=== PATIENT | female | born 1965 | race Caucasian/White ===

== ENCOUNTER 2018-01-02 15:43 | Observation (INO) | payer OTHER ==
[2018-01-02 15:58] VITALS: RESP 18
[2018-01-02] MEDS ORDERED: NITROGLYCERIN OINT 1 INCH/GM PACKET TOPICAL STA (16:34)
[2018-01-02] MEDS ORDERED: ASPIRIN 81 MG PO STA (16:34)
--- NOTE | 2018-01-02 16:39 | ED ---
General Adult HPI - General Chief complaint: Chest Pain Stated complaint: Chest pain Time Seen by Provider: 01/02/18 16:20 Source: patient, RN notes reviewed Mode of arrival: wheelchair Limitations: no limitations - History of Present Illness Initial comments: Patient is a pleasant 52-year-old female presenting to the emergency Department with chest discomfort. Patient has had intermittent symptoms for close to week. Discomfort is mild at this time. Discomfort is currently 2/10. Worst symptoms have been is 4 -5/10. Patient has discomfort in her left chest with some radiation to the upper back. patient states she does get some discomfort of her upper back at times normally. Discomfort feels like an ache. No associated dyspnea or nausea. Patient does get sweaty at times however there may be associated with her menopause. No known history of cardiac disease. No leg pain or leg swelling. Discomfort is not necessarily exertional. 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 with questionable changes and is advised to come to the emergency department - Related Data Home Medications Medication Instructions Recorded Confirmed ALPRAZolam [Xanax] 0.25 mg PO DAILY PRN 01/02/18 01/02/18 Aspirin [Adult Low Dose Aspirin EC] 81 mg PO MOTUWETHFR 01/02/18 01/02/18 Cholecalciferol [Vitamin D3] 1,000 unit PO DAILY 01/02/18 01/02/18 Inulin/Chromium Picolinate [Fiber 1 tab PO DAILY 01/02/18 01/02/18 Gummies Chew] Levothyroxine Sodium [Synthroid] 75 mcg PO MOTUTHFR 01/02/18 01/02/18 Multivitamins, Thera [Multivitamin 1 tab PO DAILY 01/02/18 01/02/18 (formulary)] Vitamin B Complex 1 cap PO DAILY 01/02/18 01/02/18 Allergies Allergy/AdvReac Type Severity Reaction Status Date / Time nitrofurantoin Allergy Rash/Hives Verified 01/02/18 16:45 [From Macrobid] shellfish derived [Lobster] AdvReac Nausea Verified 01/02/18 16:45 Review of Systems ROS Statement: Those systems with pertinent positive or pertinent negative responses have been documented in the HPI. ROS Other: All systems not noted in ROS Statement are negative. Constitutional: Denies: fever Eyes: Denies: eye pain ENT: Denies: ear pain Respiratory: Denies: cough, dyspnea Cardiovascular: Reports: chest pain Endocrine: Denies: fatigue Gastrointestinal: Denies: abdominal pain Genitourinary: Denies: dysuria Musculoskeletal: Reports: back pain Skin: Denies: rash Neurological: Denies: weakness Past Medical History Past Medical History: Thyroid Disorder History of Any Multi-Drug Resistant Organisms: None Reported Past Surgical History: Bladder Surgery Additional Past Surgical History / Comment(s): cystoscopy, laparotomy, cervical lymph node removal, liposuction, lap band placement Past Psychological History: Anxiety Smoking Status: Former smoker Past Alcohol Use History: Occasional Past Drug Use History: None Reported General Exam Limitations: no limitations General appearance: alert, in no apparent distress Head exam: Present: atraumatic Eye exam: Present: normal appearance Neck exam: Present: normal inspection Respiratory exam: Present: normal lung sounds bilaterally. Absent: chest wall tenderness Cardiovascular Exam: Present: regular rate, normal rhythm Expanded Peripheral pulses: 2+: Radial (R), Radial (L), Posterior Tibialis (R), Posterior Tibialis (L), Dorsalis Pedis (R), Dorsalis Pedis (L) GI/Abdominal exam: Present: soft. Absent: tenderness Extremities exam: Present: normal inspection. Absent: pedal edema, calf tenderness Back exam: Present: normal inspection. Absent: tenderness Neurological exam: Present: alert Psychiatric exam: Present: normal affect, normal mood Skin exam: Present: normal color Course Vital Signs 01/02/18 15:52 Temperature 99.1 F Pulse Rate 99 Respiratory 18 Rate Blood Pressure 143/83 O2 Sat by Pulse 100 Oximetry EKG Findings - EKG Comments: EKG Findings:: Normal sinus rhythm 90. UT 136. QRS 78. QT 380. QTC 464. Normal axis. Normal QRS. Borderline ST elevation in aVR which may be repolarization. There is also borderline ST depression leads V3 through V6. Medical Decision Making - Medical Decision Making Patient reevaluated and resting comfortably in bed. Patient and family both updated on results and plan. Case was discussed in detail with Dr. Lee, covering for Dr. Bourne, who will admit. Patient will be started on heparin at this time secondary to concern regarding mild change. EKG. Cardiology will be placed on consult. - Lab Data Result diagrams: 01/02/18 16:50 01/02/18 16:50 Lab Results 01/02/18 01/02/18 01/02/18 Range/Units 16:50 16:50 16:50 WBC 6.3 (3.8-10.6) k/uL RBC 4.31 (3.80-5.40) m/uL Hgb 13.4 (11.4-16.0) gm/dL Hct 40.0 (34.0-46.0) % MCV 92.6 (80.0-100.0) fL MCH 31.0 (25.0-35.0) pg MCHC 33.5 (31.0-37.0) g/dL RDW 12.3 (11.5-15.5) % Plt Count 265 (150-450) k/uL Neutrophils % 72 % Lymphocytes % 20 % Monocytes % 5 % Eosinophils % 1 % Basophils % 0 % Neutrophils # 4.6 (1.3-7.7) k/uL Lymphocytes # 1.3 (1.0-4.8) k/uL Monocytes # 0.3 (0-1.0) k/uL Eosinophils # 0.0 (0-0.7) k/uL Basophils # 0.0 (0-0.2) k/uL PT (9.0-12.0) sec INR (<1.2) APTT (22.0-30.0) sec D-Dimer (<0.60) mg/L FEU Sodium 140 (137-145) mmol/L Potassium 4.0 (3.5-5.1) mmol/L Chloride 103 (98-107) mmol/L Carbon Dioxide 27 (22-30) mmol/L Anion Gap 10 mmol/L BUN 22 H (7-17) mg/dL Creatinine 0.69 (0.52-1.04) mg/dL Est GFR (CKD-EPI)AfAm >90 (>60 ml/min/1.73 sqM) Est GFR (CKD-EPI)NonAf >90 (>60 ml/min/1.73 sqM) Glucose 97 (74-99) mg/dL Calcium 9.7 (8.4-10.2) mg/dL Magnesium 1.7 (1.6-2.3) mg/dL Total Bilirubin 0.5 (0.2-1.3) mg/dL AST 28 (14-36) U/L ALT 38 (9-52) U/L Alkaline Phosphatase 69 (38-126) U/L Total Creatine Kinase 80 (30-135) U/L CK-MB (CK-2) 1.4 (0.0-2.4) ng/mL CK-MB (CK-2) Rel Index 1.8 Troponin I <0.012 (0.000-0.034) ng/mL Total Protein 7.5 (6.3-8.2) g/dL Albumin 4.5 (3.5-5.0) g/dL 01/02/18 Range/Units 16:50 WBC (3.8-10.6) k/uL RBC (3.80-5.40) m/uL Hgb (11.4-16.0) gm/dL Hct (34.0-46.0) % MCV (80.0-100.0) fL MCH (25.0-35.0) pg MCHC (31.0-37.0) g/dL RDW (11.5-15.5) % Plt Count (150-450) k/uL Neutrophils % % Lymphocytes % % Monocytes % % Eosinophils % % Basophils % % Neutrophils # (1.3-7.7) k/uL Lymphocytes # (1.0-4.8) k/uL Monocytes # (0-1.0) k/uL Eosinophils # (0-0.7) k/uL Basophils # (0-0.2) k/uL PT 10.0 (9.0-12.0) sec INR 1.0 (<1.2) APTT 21.4 L (22.0-30.0) sec D-Dimer 0.73 H (<0.60) mg/L FEU Sodium (137-145) mmol/L Potassium (3.5-5.1) mmol/L Chloride (98-107) mmol/L Carbon Dioxide (22-30) mmol/L Anion Gap mmol/L BUN (7-17) mg/dL Creatinine (0.52-1.04) mg/dL Est GFR (CKD-EPI)AfAm (>60 ml/min/1.73 sqM) Est GFR (CKD-EPI)NonAf (>60 ml/min/1.73 sqM) Glucose (74-99) mg/dL Calcium (8.4-10.2) mg/dL Magnesium (1.6-2.3) mg/dL Total Bilirubin (0.2-1.3) mg/dL AST (14-36) U/L ALT (9-52) U/L Alkaline Phosphatase (38-126) U/L Total Creatine Kinase (30-135) U/L CK-MB (CK-2) (0.0-2.4) ng/mL CK-MB (CK-2) Rel Index Troponin I (0.000-0.034) ng/mL Total Protein (6.3-8.2) g/dL Albumin (3.5-5.0) g/dL - Radiology Data Radiology results: report reviewed (CT angios of the chest shows no evidence of pulmonary embolism.), image reviewed (Chest x-ray shows no acute process) Disposition Clinical Impression: Unstable angina pectoris Disposition: ADMITTED IP TO THIS HOSP Is patient prescribed a controlled substance at d/c from ED?: No Referrals: Lobo Bourne MD [Primary Care Provider] - 1-2 days Decision Time: 19:26
[2018-01-02 17:02] LABS: Basophils % (A) 0 %; Eosinophils % (A) 1 %; HGB 13.4 gm/dL (11.4-16.0); Lymphocytes # (A) 1.3 k/uL (1.0-4.8); Lymphocytes % (A) 20 %; MCHC 33.5 g/dL (31.0-37.0); MCV 92.6 fL (80.0-100.0); Mean Platelet Volume 7.2; Monocytes # (A) 0.3 k/uL (0-1.0); Monocytes % (A) 5 %; Neutrophils # (A) 4.6 k/uL (1.3-7.7); Neutrophils % (A) 72 %; Platelet Count 265 k/uL (150-450); RBC 4.31 m/uL (3.80-5.40); RDW 12.3 % (11.5-15.5); WBC 6.3 k/uL (3.8-10.6)
--- NOTE | 2018-01-02 17:09 | XR ---
EXAMINATION TYPE: XR chest 2V DATE OF EXAM: 01/02/2018 COMPARISON: NONE HISTORY: Chest pain TECHNIQUE: Frontal and lateral views of the chest are obtained. FINDINGS: Heart and mediastinum are normal. Lungs are clear. Diaphragm is normal. Bony thorax appear s normal. IMPRESSION: Normal chest
[2018-01-02 17:13] LABS: ALT 38 U/L (9-52); AST 28 U/L (14-36); Albumin 4.5 g/dL (3.5-5.0); Alkaline Phosphatase 69 U/L (38-126); Anion Gap 10 mmol/L; Blood Urea Nitrogen 22 mg/dL (7-17); Calcium 9.7 mg/dL (8.4-10.2); Carbon Dioxide 27 mmol/L (22-30); Chloride 103 mmol/L (98-107); Glucose 97 mg/dL (74-99); Magnesium 1.7 mg/dL (1.6-2.3); Sodium 140 mmol/L (137-145); Total Bilirubin 0.5 mg/dL (0.2-1.3); Total Protein 7.5 g/dL (6.3-8.2)
[2018-01-02 17:16] LABS: Creatine Kinase 80 U/L (30-135)
[2018-01-02 17:24] LABS: D-Dimer 0.73 mg/L FEU (<0.60); Partial Thromboplastin Time 21.4 sec (22.0-30.0)
[2018-01-02 17:29] LABS: Creatine Kinase MB 1.4 ng/mL (0.0-2.4); Troponin I <0.012 ng/mL (0.000-0.034)
[2018-01-02] MEDS ORDERED: methylPREDNISolone SOD SUCCI 125 MG/2 ML VIAL IV STA (17:36)
[2018-01-02] MEDS ORDERED: diphenhydrAMINE 50 MG/ML 1 ML VIAL IVP STA (17:36)
[2018-01-02] MEDS ORDERED: FAMOTIDINE 20 MG/2 ML VIAL IV STA (17:36)
--- NOTE | 2018-01-02 19:11 | CT ---
EXAMINATION TYPE: CT angio chest DATE OF EXAM: 01/02/2018 6:55 PM COMPARISON: None HISTORY: Chest and back pain x1 week. CT DLP: 481 mGycm Automated exposure control for dose reduction was used. CONTRAST: CTA scan of the thorax is performed with IV Contrast, patient injected with 65ml mL of Isovue 370, pu lmonary embolism protocol. There are 3-D post processed images.. FINDINGS: SNA aorta measures 3.6 cm. There is no evidence of aortic aneurysm or dissection. There is no mediast inal adenopathy. There are no hilar masses. There is normal contrast opacification of the pulmonary a rteries. There are no filling defects. Heart size is normal. There is no pericardial effusion. There is bariatric surgery noted. The lungs are clear of infiltrate. There is no evidence of a pulmonary mass. There is no pleural effu parish. IMPRESSION: NO EVIDENCE OF PULMONARY EMBOLISM. NORMAL EXAM. SMALL HIATAL HERNIA NOTED.
[2018-01-02] MEDS ORDERED: HEPARIN SODIUM,PORCINE 5,000 UNIT/ML 1 ML VIAL IV PRN (19:26)
[2018-01-02] MEDS ORDERED: NITROGLYCERIN SL TABS 0.4 MG TAB SUBLINGUAL PRN (19:26)
[2018-01-02] MEDS ORDERED: HEPARIN SODIUM,PORCINE 5,000 UNIT/ML 1 ML VIAL IV ONE (19:26)
[2018-01-02] MEDS ORDERED: HEPARIN SOD,PORK IN 0.45% NACL 25,000 UNIT in 0.45% NACL 1 500ML.BAG IV SCH (19:30)
[2018-01-02] MEDS ORDERED: ALPRAZolam 0.25 MG TAB PO STA (19:31)
[2018-01-02] MEDS ORDERED: TAMSULOSIN 0.4 MG CAP.ER.24H PO SCH (21:30)
[2018-01-02 23:33] LABS: Creatine Kinase 76 U/L (30-135)
[2018-01-03 00:43] LABS: Creatine Kinase MB 1.1 ng/mL (0.0-2.4); Troponin I <0.012 ng/mL (0.000-0.034)
[2018-01-03] MEDS: NITROGLYCERIN OINT 1 INCH/GM PACKET TOPICAL SCH ×2 (01:02→06:15)
[2018-01-03 06:11] LABS: Platelet Count 249 k/uL (150-450)
[2018-01-03] MEDS ORDERED: LEVOTHYROXINE 75 MCG TAB PO SCH (06:30)
[2018-01-03 06:47] LABS: Creatine Kinase 62 U/L (30-135)
[2018-01-03 06:52] LABS: Cholesterol 224 mg/dL (<200); HDL Cholesterol 104 mg/dL (40-60); LDL Cholesterol,Calculated 110 mg/dL (0-99); Triglycerides 52 mg/dL (<150)
[2018-01-03 06:59] LABS: Creatine Kinase MB 0.9 ng/mL (0.0-2.4); Troponin I <0.012 ng/mL (0.000-0.034)
[2018-01-03 08:31] VITALS: PULSE 93
[2018-01-03] MEDS ORDERED: ASPIRIN 325 MG TAB PO SCH (09:00)
[2018-01-03 13:40] VITALS: BP 104/68; TEMP 98.2
--- NOTE | 2018-01-03 13:57 | ECHOF ---
Referral Reason:chest pain MEASUREMENTS -------- HEIGHT: 162.6 cm WEIGHT: 81.2 kg BP: 121/59 RVIDd: 3.0 cm (< 3.3) IVSd: 0.9 cm (0.6 - 1.1) LVIDd: 4.2 cm (3.9 - 5.3) LVPWd: 1.0 cm (0.6 - 1.1) IVSs: 1.4 cm LVIDs: 2.2 cm LVPWs: 1.3 cm LAESV Index (A-L): 15.28 ml/m Ao Diam: 2.9 cm (2.0 - 3.7) AV Cusp: 1.7 cm (1.5 - 2.6) LA Diam: 3.1 cm (2.7 - 3.8) EPSS: 0.2 cm MV E Ryan: 0.90 m/s MV DecT: 225 ms MV A Ryan: 0.80 m/s MV E/A Ratio: 1.13 RAP: 5.00 mmHg RVSP: 15.76 mmHg MV EF SLOPE: 35.98 mm/s (70 - 150) MV EXCURSION: 1.31 cm (> 18.000) FINDINGS -------- Sinus rhythm. This was a technically good study. The left ventricular size is normal. Left ventricular wall thickness is normal. Overall left vent ricular systolic function is normal with, an EF between 55 - 60 %. The right ventricle is normal in size and function. Normal LA size by volume 22+/-6 ml/m2. The right atrium is normal in size. The aortic valve is trileaflet, and appears structurally normal. No aortic stenosis or regurgitation. The mitral valve leaflets are mildly thickened. There is trace to mild mitral regurgitation. Trace tricuspid regurgitation present. Right ventricular systolic pressure is normal at < 35 mmHg. There is no evidence of pulmonary hypertension. Trace/mild (physiologic) pulmonic regurgitation. The aortic root size is normal. Normal inferior vena cava with normal inspiratory collapse consistent with estimated right atrial pre ssure of 5 mmHg. There is no pericardial effusion. CONCLUSIONS -------- 1. Sinus rhythm. 2. This was a technically good study. 3. The left ventricular size is normal. 4. Left ventricular wall thickness is normal. 5. Overall left ventricular systolic function is normal with, an EF between 55 - 60 %. 6. Normal LA size by volume 22+/-6 ml/m2. 7. The aortic valve is trileaflet, and appears structurally normal. No aortic stenosis or regurgitati on. 8. The mitral valve leaflets are mildly thickened. 9. There is trace to mild mitral regurgitation. 10. Trace tricuspid regurgitation present. 11. Right ventricular systolic pressure is normal at < 35 mmHg. 12. There is no evidence of pulmonary hypertension. 13. Trace/mild (physiologic) pulmonic regurgitation. 14. The aortic root size is normal. 15. There is no pericardial effusion. STUDENT RECORDS COORDINATOR: Sunil Tobias RDCS
--- NOTE | 2018-01-03 14:12 | ECHOS ---
STRESS ECHOCARDIOGRAM INDICATIONS: Chest pain. MEDICATIONS: Synthroid, aspirin. BASELINE HEART RATE: 88 BASELINE BLOOD PRESSURE: 129/60 MAXIMUM HEART RATE: 159 MAXIMUM BLOOD PRESSURE: 174/41 85% MPHR: 141 100% MPHR: 166 METS: 7.1 MAXIMUM STAGE REACHED: 2 TOTAL EXERCISE TIME: 6:00 CLINICAL INFORMATION: Patient was exercised for a total period of 6 minutes, peak heart rate of 159 was achieved. Maximum blood pressure 174/41 mmHg was noted. Resting EKG shows normal sinus rhythm with normal FL interval and QRS duration and normal ST-T waves. No ST-segment depression suggestive of ischemia is noted. The baseline echocardiographic images reveals normal left ventricular chamber size with normal left ventricular systolic function in the immediate postexercise. Normal increase in the wall thickness and contractility was noted. JUDITHL / IJN: [id number] /
--- NOTE | 2018-01-03 15:24 | CONS ---
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 She was at work yesterday when she developed an episode of discomfort in the chest. It was a midsternal discomfort that seemed to kind of settle there and also had some radiation to the neck. It happened while she was not doing physical activity. At other times when she does physical activity, she does not really have that many symptoms. She is resting comfortably at the time of my evaluation. PAST MEDICAL HISTORY: Remarkable for hypothyroidism. She has no evidence of any hypertension, myocardial infarction or CVA. MEDICATIONS: At home include Synthroid 75 mcg daily. She also takes Flomax 0.4 mg daily with some bladder issues. ALLERGIES: She is allergic to MACROBID. Her EKG revealed sinus mechanism with nonspecific ST depression. PHYSICAL EXAMINATION: Blood pressure is 130/70, pulse rate is 80 per minute, regular. HEENT: Unremarkable. Fundus was not examined by me. Neck is supple. No JVD. I do not hear a carotid bruit. There is no thyromegaly. Heart exam reveals S1, S2 heard normally without a rub, murmur or gallop. Lungs are clear. Abdomen is soft, nontender. Lower extremities reveal normal pulses. No edema. Central nervous system is normal. EKG revealed sinus mechanism with nonspecific ST depression. LAB DATA: Revealed unremarkable troponins. IMPRESSION: 1. Chest pain syndrome, cannot exclude angina. EKG is slightly abnormal. Patient had a CT angiography which did not reveal any evidence of pulmonary embolism. 2. Hypothyroidism. RECOMMENDATION: I am recommending that we increase activity, perform a stress echo and if this is normal she can be discharged. I discussed my thoughts in detail with the patient and . Thank you very much for the consult. MMODL / IJN: [id number] /
[2018-01-03] MEDS ORDERED: ATORVASTATIN 20 MG TAB PO SCH (21:00)
--- NOTE | 2018-01-03 21:39 | P.HPIM ---
History of Present Illness H&P Date: 01/03/18 Chief Complaint: Chest pain Patient is a 52-year-old female with a known history of hypothyroidism, history of lap band placement and previous history of smoking came to ER with complaints of chest discomfort and back pain mainly thoracic area for the past 1 week. 2 out of 10 in severity. Feels like aching and Pressure-like sensation. Patient has been having this pain for the past 1 week. Denied any associated nausea vomiting. No associated shortness of breath. No headache or dizziness or lightheadedness. Denied any complaints of abdominal pain nausea or vomiting. No recent illnesses. No recent travel. Patient had EKG done in the doctor's office which has been compared to her old EKG. It showed some ST- T wave changes and patient was referred to ER for further evaluation. EKG showed nonspecific ST-T wave changes and sinus rhythm D-dimer is 0.7. CT angiogram showed no evidence of pulmonary embolism. Small hiatal hernia noted. Chest x-ray showed no acute cardio prudent process 2-D echocardiogram was done. Review of Systems Constitutional: Patient denies any fever or chills . No generalized weakness or weight loss. Abdomen: Patient denied nausea vomiting and diarrhea and abdominal pain. Cardiovascular: Chest pain and back pain. No neck swelling. No palpitations.. Respiratory: patient denied any cough is from production. No shortness of breath Neurologic: Patient denied any numbness or tingling headache. Musculoskeletal: Patient denies any complaints of joint swelling or deformity. Skin: Negative Psychiatric: Negative Endocrine: No heat or cold intolerance. No recent weight gain. Genitourinary: No dysuria or hematuria. All other 14 point ROS negative except the above Past Medical History Past Medical History: Thyroid Disorder Additional Past Medical History / Comment(s): THYROID(GOITER) ,KIDNEY STONE 2016 (PASSES IT), STARTED OF CATARACT RT EYE History of Any Multi-Drug Resistant Organisms: None Reported Past Surgical History: Bladder Surgery Additional Past Surgical History / Comment(s): cystoscopy, laparotomy, cervical lymph node removal, liposuction, lap band placement Past Anesthesia/Blood Transfusion Reactions: No Reported Reaction Additional Past Anesthesia/Blood Transfusion Reaction / Comment(s): clausterphobia Smoking Status: Former smoker - Past Family History Mother Family Medical History: Cancer Additional Family Medical History / Comment(s): uterine cancer and 7 years later brain cancer Father Family Medical History: Dialysis, Myocardial Infarction ([place]), Renal Disease Additional Family Medical History / Comment(s): heart disease, has first mi at age 55 Medications and Allergies Home Medications Medication Instructions Recorded Confirmed Type ALPRAZolam [Xanax] 0.25 mg PO DAILY PRN 01/02/18 01/02/18 History Aspirin [Adult Low Dose Aspirin EC] 81 mg PO MOTUWETHFR 01/02/18 01/02/18 History Cholecalciferol [Vitamin D3] 1,000 unit PO DAILY 01/02/18 01/02/18 History Inulin/Chromium Picolinate [Fiber 1 tab PO DAILY 01/02/18 01/02/18 History Gummies Chew] Levothyroxine Sodium [Synthroid] 75 mcg PO MOTUTHFR 01/02/18 01/02/18 History Multivitamins, Thera [Multivitamin 1 tab PO DAILY 01/02/18 01/02/18 History (formulary)] Tamsulosin HCl [Flomax] 0.4 mg PO HS 01/02/18 01/02/18 History Vitamin B Complex 1 cap PO DAILY 01/02/18 01/02/18 History Atorvastatin [Lipitor] 20 mg PO HS #30 tab 01/03/18 Rx Allergies Allergy/AdvReac Type Severity Reaction Status Date / Time nitrofurantoin Allergy Rash/Hives Verified 01/02/18 16:45 [From Macrobid] shellfish derived [Lobster] AdvReac Nausea Verified 01/02/18 16:45 Physical Exam Vitals: Vital Signs Temp Pulse Pulse Resp BP BP Pulse Ox 01/03/18 08:26 97.7 F 93 16 131/63 100 01/03/18 03:34 96.3 F L 84 16 121/59 95 01/02/18 23:28 97.1 F L 83 16 120/59 94 L 01/02/18 21:00 97.5 F L 84 18 123/64 96 01/02/18 20:31 98.0 F 01/02/18 19:31 90 18 127/59 96 01/02/18 19:26 96 01/02/18 15:52 99.1 F 99 18 143/83 100 Intake and Output 01/02/18 01/03/18 01/03/18 22:59 06:59 14:59 Intake Total 333.032 Balance 333.032 Intake: IV 200 .9 200 Intake, IV Titration 133.032 Amount Heparin Sod,Pork in 0.45% 133.032 NaCl 25,000 unit In 0.45 % NaCl 1 500ml.bag @ 12 UNITS/KG/HR 19.05 mls/hr IV .Q24H NOE Rx#: [id number] Other: Voiding Method Toilet Toilet Weight 79.379 kg 81.6 kg PHYSICAL EXAMINATION: Patient is lying in the bed comfortably, no acute distress, awake alert and oriented.. HEENT: Normocephalic. Neck is supple. Pupils reactive. Nostrils clear. Oral cavity is moist. Ears reveal no drainage. Neck reveals no JVD, carotid bruits, or thyromegaly. CHEST EXAMINATION: Trachea is central. Symmetrical expansion. Lung oseguera clear to auscultation and percussion. CARDIAC: Normal S1, S2 with no gallops. No murmurs ABDOMEN: Soft. Bowel sounds normal. No organomegaly. No abdominal bruits. Extremities: reveal no edema. No clubbing or cyanosis Neurologically awake, alert, oriented x3 with well-coordinated movements. No focal deficits noted Skin: No rash or skin lesions. Psychiatric: Coperative. Nonsuicidal Musculoskeletal: No joint swelling or deformity. Normal range of motion. Results CBC & Chem 7: 01/03/18 05:26 01/02/18 16:50 Labs: Abnormal Lab Results - Last 24 Hours (Table) 01/02/18 01/02/18 01/03/18 Range/Units 16:50 16:50 01:47 APTT 21.4 L 44.4 H (22.0-30.0) sec D-Dimer 0.73 H (<0.60) mg/L FEU BUN 22 H (7-17) mg/dL Cholesterol (<200) mg/dL LDL Cholesterol, Calc (0-99) mg/dL HDL Cholesterol (40-60) mg/dL 01/03/18 01/03/18 Range/Units 05:26 09:15 APTT 53.4 H (22.0-30.0) sec D-Dimer (<0.60) mg/L FEU BUN (7-17) mg/dL Cholesterol 224 H (<200) mg/dL LDL Cholesterol, Calc 110 H (0-99) mg/dL HDL Cholesterol 104 H (40-60) mg/dL Thrombosis Risk Factor Assmnt - DVT/VTE Prophylaxis DVT/VTE Prophylaxis: Pharmacologic Prophylaxis ordered - Choose All That Apply Any of the Below Risk Factors Present?: Yes Each Factor Represents 1 point: Age 41-60 years Other Risk Factors: No Other congenital or acquired thrombophilia - If yes, enter type in comment: No Thrombosis Risk Factor Assessment Total Risk Factor Score: 1 Thrombosis Risk Factor Assessment Level: Low Risk Assessment and Plan Assessment: Atypical chest pain and back pain. Possible angina like symptoms. Thoracic upper back pain could be related to stressful work Hypothyroidism History of lap band surgery Previous history of smoking Hyperlipidemia with LDL 110 Plan: Patient will be continued on telemetry monitoring. Serial EKG and troponin [address] angiogram showed no evidence of pulmonary embolism. Patient was seen by cardiology and recommended 2-D echocardiogram and stress echo which has been done today. Negative study. Otherwise chest pain is much improved now. Patient is stable to be discharged home. Patient was started on statins for hyperlipidemia. Time with Patient: Greater than 30
--- NOTE | 2018-01-03 21:40 | P.DS ---
Providers Date of admission: 01/02/18 19:26 Expected date of discharge: 01/03/18 Attending physician: Chepe Lee Consults: 01/02/18 19:26 Consult Physician Urgent Consulting Provider: Ana Rosa Carrera Consult Reason/Comments: ua Do you want consulting provider notified?: Yes Primary care physician: Lobo Bourne Hospital Course: Discharge diagnosis Atypical chest pain and back pain. Possible angina like symptoms.. Ruled out ACS. Stress echo is negative. Thoracic upper back pain could be related to stressful work Hypothyroidism History of lap band surgery Previous history of smoking Hyperlipidemia with LDL 110 Hospital course Patient was continued on telemetry monitoring. Serial EKG and troponin [address] angiogram showed no evidence of pulmonary embolism. Patient was seen by cardiology and recommended 2-D echocardiogram and stress echo which has been done today. Negative study. Otherwise chest pain is much improved now. Patient is stable to be discharged home. Patient was started on statins for hyperlipidemia. Discharge physical examination was done and vitals reviewed. Patient Condition at Discharge: Stable Plan - Discharge Summary Discharge Rx Participant: Yes New Discharge Prescriptions: New Atorvastatin [Lipitor] 20 mg PO HS #30 tab Continue Cholecalciferol [Vitamin D3] 1,000 unit PO DAILY Multivitamins, Thera [Multivitamin (formulary)] 1 tab PO DAILY Levothyroxine Sodium [Synthroid] 75 mcg PO MOTUTHFR ALPRAZolam [Xanax] 0.25 mg PO DAILY PRN PRN Reason: Anxiety Vitamin B Complex 1 cap PO DAILY Inulin/Chromium Picolinate [Fiber Gummies Chew] 1 tab PO DAILY Aspirin [Adult Low Dose Aspirin EC] 81 mg PO MOTUWETHFR Tamsulosin HCl [Flomax] 0.4 mg PO HS Discharge Medication List ALPRAZolam [Xanax] 0.25 mg PO DAILY PRN 01/02/18 [History] Aspirin [Adult Low Dose Aspirin EC] 81 mg PO MOTUWETHFR 01/02/18 [History] Cholecalciferol [Vitamin D3] 1,000 unit PO DAILY 01/02/18 [History] Inulin/Chromium Picolinate [Fiber Gummies Chew] 1 tab PO DAILY 01/02/18 [History ] Levothyroxine Sodium [Synthroid] 75 mcg PO MOTUTHFR 01/02/18 [History] Multivitamins, Thera [Multivitamin (formulary)] 1 tab PO DAILY 01/02/18 [History ] Tamsulosin HCl [Flomax] 0.4 mg PO HS 01/02/18 [History] Vitamin B Complex 1 cap PO DAILY 01/02/18 [History] Atorvastatin [Lipitor] 20 mg PO HS #30 tab 01/03/18 [Rx] Follow up Appointment(s)/Referral(s): Lobo Bourne MD [Primary Care Provider] - 01/04/18 2:00 pm Patient Instructions/Handouts: Angina (DC) Discharge Disposition: HOME SELF-CARE
== END 2018-01-03 16:42 | disposition home or self-care (01) ==
LOC: EC 15:43 → 6SEL 19:26
PROVIDERS: ADMIT Internal Medicine; ATTEND Internal Medicine
DX: R07.89 Other chest pain (principal); M54.6 Pain in thoracic spine; E03.9 Hypothyroidism, unspecified; K44.9 Diaphragmatic hernia without obstruction or gangrene; E78.5 Hyperlipidemia, unspecified; F41.9 Anxiety disorder, unspecified; H26.9 Unspecified cataract; E04.9 Nontoxic goiter, unspecified; Z98.84 Bariatric surgery status; Z79.82 Long term (current) use of aspirin; Z79.890 Hormone replacement therapy; Z79.899 Other long term (current) drug therapy; Z88.1 Allergy status to other antibiotic agents; Z91.013 Allergy to seafood; Z87.891 Personal history of nicotine dependence; Z87.442 Personal history of urinary calculi; Z80.8 Family history of malignant neoplasm of other organs or systems; Z80.49 Family history of malignant neoplasm of other genital organs; Z82.49 Family history of ischemic heart disease and other diseases of the circulatory system; Z84.1 Family history of disorders of kidney and ureter
CPT/HCPCS: 99285 ×2; 96365 ×2; 96375 ×4; 96376 ×2; 96366 ×2; 36415; 93005; 93306; 93351; 85379; 80061; 80053; 82550 ×2; 82553 ×2; 83735; 84484 ×2; 85025; 85049; 85610; 85730 ×2; 71046; 71275; G0378 ×2; J1200; J1644 ×2; J2930; Q9967

== ENCOUNTER 2019-03-22 13:37 | Emergency (ER) | payer OTHER ==
[2019-03-22] MEDS ORDERED: SODIUM CHLORIDE 0.9% 1,000 ML IV STA (13:54)
[2019-03-22] MEDS ORDERED: MORPHINE SULFATE 4 MG/ML SYRINGE IV STA (13:54)
--- NOTE | 2019-03-22 14:06 | ED ---
General Adult HPI - General Chief complaint: Extremity Injury, Upper Stated complaint: Fall, arm injury Time Seen by Provider: 03/22/19 13:44 Source: patient Mode of arrival: wheelchair Limitations: no limitations - History of Present Illness Initial comments: Dictation was produced using [employer] dictation software. please excuse any gr ammatical, word or spelling errors. Chief Complaint: 53-year-old female presents with left shoulder pain. History of Present Illness: 53-year-old female she was walking her dog when she fell down a couple steps. Patient states she fell on a outstretched arm. She states she felt a snap. Since the injury patient's been complaining of left shoulder and left upper extremity pain. She localizes the pain to the anterior and lateral proximal humerus. Denies any numbness and paresthesias to the arm. Patient denies any history of injuries to the left upper extremity. The ROS documented in this emergency department record has been reviewed and confirmed by me. Those systems with pertinent positive or negative responses have been documented in the HPI. All other systems are other negative and/or noncontributory. PHYSICAL EXAM: General Impression: Alert and oriented x3, acute distress secondary to pain HEENT: Normocephalic atraumatic, extra-ocular movements intact, pupils equal and reactive to light bilaterally, mucous membranes moist. Cardiovascular: Heart regular rate and rhythm, S1&S2 audible, no murmurs, rubs or gallops Chest: Lungs clear to auscultation bilaterally, no rhonchi, no wheeze, no rales Abdomen: Bowel sounds present, abdomen soft, non-tender, non-distended, no organomegaly Musculoskeletal: Pulses present and equal in all extremities, no peripheral e alexis, tenderness to palpation of the left upper extremity at the proximal area. No obvious gross deformity at the left shoulder level Motor: no focal deficits noted Neurological: CN II-XII grossly intact, no focal motor or sensory deficits noted Skin: Intact with no visualized rashes Psych: Normal affect and mood ED course: 53-year-old female presents with left shoulder pain after fall. Signs upon arrival are within acceptable limits. Shoulder x-ray was performed showing comminuted proximal humerus fracture with minimal displacement. There is impaction of approximately 4 mm. Patient is p laced in a coapt splint given IV analgesia twice. She is also placed in a sling. Discussed patient case with Dr. Henderson who reports that optimal time to follow up with orthopedic surgery sometime next week. Prescription provided by mouth analgesia. Patient will be discharge she is understandable agreeable with disposition. Return was discussed. - Related Data Home Medications Medication Instructions Recorded Confirmed ALPRAZolam [Xanax] 0.25 mg PO DAILY PRN 01/02/18 01/02/18 Aspirin [Adult Low Dose Aspirin EC] 81 mg PO MOTUWETHFR 01/02/18 01/02/18 Cholecalciferol [Vitamin D3 (25 1,000 unit PO DAILY 01/02/18 01/02/18 Mcg = 1000 Iu)] Inulin/Chromium Picolinate [Fiber 1 tab PO DAILY 01/02/18 01/02/18 Gummies Chew] Levothyroxine Sodium [Synthroid] 75 mcg PO MOTUTHFR 01/02/18 01/02/18 Multivitamins, Thera [Multivitamin 1 tab PO DAILY 01/02/18 01/02/18 (formulary)] Tamsulosin HCl [Flomax] 0.4 mg PO HS 01/02/18 01/02/18 Vitamin B Complex 1 cap PO DAILY 01/02/18 01/02/18 Previous Rx's Medication Instructions Recorded Atorvastatin [Lipitor] 20 mg PO HS #30 tab 01/03/18 oxyCODONE HCL/ACETAMINOPHEN 1 tab PO Q6HR PRN 3 Days #12 tab 03/22/19 [Percocet 5-325 mg] Allergies Allergy/AdvReac Type Severity Reaction Status Date / Time nitrofurantoin Allergy Rash/Hives Verified 03/22/19 13:42 [From Macrobid] shellfish derived [Lobster] AdvReac Nausea Verified 03/22/19 13:42 Review of Systems ROS Statement: Those systems with pertinent positive or pertinent negative responses have been documented in the HPI. ROS Other: All systems not noted in ROS Statement are negative. Past Medical History Past Medical History: Thyroid Disorder Additional Past Medical History / Comment(s): THYROID(GOITER) ,KIDNEY STONE 2016(PASSES IT), STARTED OF CATARACT RT EYE History of Any Multi-Drug Resistant Organisms: None Reported Past Surgical History: Bladder Surgery Additional Past Surgical History / Comment(s): cystoscopy, laparotomy, cervical lymph node removal, liposuction, lap band placement Past Anesthesia/Blood Transfusion Reactions: No Reported Reaction Additional Past Anesthesia/Blood Transfusion Reaction / Comment(s): clausterphobia Past Psychological History: Anxiety Smoking Status: Former smoker Past Alcohol Use History: Occasional Past Drug Use History: None Reported - Past Family History Mother Family Medical History: Cancer Additional Family Medical History / Comment(s): uterine cancer and 7 years later brain cancer Father Family Medical History: Dialysis, Myocardial Infarction (HI), Renal Disease Additional Family Medical History / Comment(s): heart disease, has first mi at age 55 General Exam Limitations: no limitations Course Vital Signs 03/22/19 13:40 Temperature 98.4 F Pulse Rate 85 Respiratory 18 Rate Blood Pressure 118/56 O2 Sat by Pulse 100 Oximetry Procedures - Orthopedic Splinting/Casting Injury #1 Side: left Upper Extremity Injury Location: shoulder Upper Extremity Immobilizer: sling/shoulder immobilizer (coapt splint) Disposition Clinical Impression: Proximal humerus fracture Disposition: HOME SELF-CARE Condition: Good Instructions (If sedation given, give patient instructions): Arm Fracture in Adults (ED) Prescriptions: oxyCODONE HCL/ACETAMINOPHEN [Percocet 5-325 mg] 1 tab PO Q6HR PRN 3 Days #12 tab PRN Reason: Pain Is patient prescribed a controlled substance at d/c from ED?: Yes If prescribed controlled substance>3 days was MAPS reviewed?: Prescribed <3 Days Referrals: Krish Vazquez DO [Medical Doctor] - 03/24/19 Time of Disposition: 15:30
[2019-03-22] MEDS ORDERED: MORPHINE SULFATE 4 MG/ML SYRINGE IVP STA (15:05)
--- NOTE | 2019-03-22 15:18 | XR ---
EXAMINATION TYPE: XR shoulder complete LT DATE OF EXAM: 03/22/2019 CLINICAL HISTORY: Fall TECHNIQUE: Three views of the left shoulder are obtained. COMPARISON: None. FINDINGS: Comminuted proximal humeral fracture. Minimally displaced fracture through the surgical neck. Mildly impacted fracture through the greater tuberosity, impacted by approximately 4 mm. Glenohumeral and ac romioclavicular joints are congruent. IMPRESSION: Comminuted however not significantly displaced proximal humeral fracture.
[2019-03-22 15:48] VITALS: BP 124/67; PULSE 69; RESP 19; TEMP 97.7
== END 2019-03-22 15:48 | disposition home or self-care (01) ==
LOC: EC 13:37
DX: S42.202A Unspecified fracture of upper end of left humerus, initial encounter for closed fracture (principal); E04.9 Nontoxic goiter, unspecified; Z87.891 Personal history of nicotine dependence; Z88.1 Allergy status to other antibiotic agents; Z91.013 Allergy to seafood; Z79.82 Long term (current) use of aspirin; Z79.890 Hormone replacement therapy; Z79.899 Other long term (current) drug therapy; W10.9XXA Fall (on) (from) unspecified stairs and steps, initial encounter; Y93.K1 Activity, walking an animal
CPT/HCPCS: 73030; 99283; 96374; 96376; 96361; J2270

== ENCOUNTER → 2021-02-11 | Outpatient (CLI) | payer OTHER ==
--- NOTE | 2021-02-11 15:28 | ECHOS ---
STRESS ECHOCARDIOGRAM INDICATIONS: Abnormal ECG. BASELINE HEART RATE: 99 BASELINE BLOOD PRESSURE: 132/64 MAXIMUM HEART RATE: 153 MAXIMUM BLOOD PRESSURE: 142/59 85% MPHR: 139 100% MPHR: 163 METS: 7.1 MAXIMUM STAGE REACHED: 2 TOTAL EXERCISE TIME: 6:00 CLINICAL INFORMATION: Baseline EKG revealed normal sinus rhythm with minor nonspecific ST abnormality. Patient walked on standard Carlos A protocol for 6 minutes, achieved a maximal heart rate of 153 beats per minute, which is more than 85% of predicted maximal. She developed fatigue and shortness of breath but did not have any anginal symptoms. EKG revealed upsloping nonspecific ST-segment changes. There was no arrhythmia. There was no angina. By EKG criteria, this is a negative stress test with limited exercise capacity. Baseline echo images revealed normal wall motion and wall thickening of all segments. At peak exercise there was good augmentation of left ventricular wall motion and wall thickening of all segments, suggesting that there is no evidence of any stress-induced ischemia on this study. FINAL IMPRESSION: 1. Fair exercise capacity with a negative stress test by EKG criteria. 2. Normal stress echocardiogram. MMODL / IJN: [id number] /
== END | disposition home or self-care (01) ==
LOC: RADNMMAIN 09:01
PROVIDERS: ATTEND Family Medicine
DX: R94.31 Abnormal electrocardiogram [ECG] [EKG] (principal)
CPT/HCPCS: 93351

== ENCOUNTER → 2021-11-17 | Outpatient (CLI) | payer OTHER ==
--- NOTE | 2021-11-17 21:26 | MR ---
MR MRCP INDICATION: Patient age:Female; 56 years old; Reason for study: K83.8 OTHER SPECIFIED DISEASES OF BILIARY TRACT COMPARISON: CT angiogram chest 01/02/2018. TECHNIQUE: Multi planar, T2-weighted imaging with and without fat saturation and chemical shift imag ing was performed of the abdomen. Then, heavily T2 weighted imaging (half-Fourier acquisition single- shot turbo spin-echo) was utilized in order to study the biliary system. Maximum intensity projectio n images were reconstructed from the original data of the biliary tree. No Gadolinium given. FINDINGS: MRCP: The intrahepatic ducts have a normal appearance. The common bile duct at the level of the xavier creatic head measures 7 mm in size. The common hepatic duct measures 5 mm in size. The pancreatic du ct is normal. The gallbladder appears unremarkable. Abdomen: The spleen, adrenal glands, kidneys, and pancreas have a normal noncontrast appearance. Ther e is a stomach lap band present. Other: Bilateral breast implants are present. IMPRESSION: No evidence to suggest ductal stricture, choledocholithiasis, or biliary ductal dilatation.
== END | disposition home or self-care (01) ==
LOC: RADMRIMAIN 16:12
PROVIDERS: ATTEND Internal Medicine
DX: K83.8 Other specified diseases of biliary tract (principal)
CPT/HCPCS: 74181